=== PATIENT | male | born 1965 | race Caucasian/White ===

== ENCOUNTER 2021-12-29 05:19 | Day surgery (SDC) | payer OTHER, SELFPAY ==
[2021-12-26 06:47] VITALS: BMI 33.7
[2021-12-29 06:13] VITALS: BP 107/64; PULSE 62; RESP 16; TEMP 36.8; O2SAT 95
[2021-12-29] MEDS: sodium chloride 0.9% 1,000 ML 30 ML IV (06:18)
--- NOTE | 2021-12-29 06:53 | ANES.PREANE2 ---
Pre-Anesthetic Assessment Height/Weight: Height 1.91 m Weight 122.47 kg Temp Pulse Resp BP Pulse Ox 98.2 F 62 16 107/64 95 12/29/21 06:13 12/29/21 06:13 12/29/21 06:13 12/29/21 06:13 12/29/21 06:13 Preop Diagnosis: Screen Operation Date: 12/29/21 07:00 Proposed Procedures p Colonoscopy g0121/z12.11(Not Applicable) - Jose Samaniego MD Familial anesthetic complications: none Was Beta Anisha taken within 24 hours: N/A Was Clonidine taken within 24 hours: N/A Last intake: Intake Last Liquid Date 12/28/21 Last Liquid Time 22:30 Last Solid Date 12/27/21 Last Solid Time 18:00 Last Intake: 23:00 Social No alcohol and No tobacco Exam alert, oriented x 3, clear to auscultation bilaterally and regular rate & rhythm Airway Submandibular: within normal limits Cervical ROM: within normal limits Mallampati: Class II Dentition: full Pulmonary Sleep Apnea (cpap) CV/HEM Hypertension None reported Hepatic None reported GI None reported Metabolic None reported Musc/skel Lower Back Pain Neuropsych None reported Anesthetic Plan ASA status: 3 Anesthesia: MAC Risk of > 500 ml blood loss (7ml/kg in children): No Medications/Allergies Home Medications Medication Instructions Recorded Confirmed Last Taken Type aspirin 81 mg tablet,delayed 81 mg PO DAILY 10/31/19 12/29/21 12/28/21 History release (Adult Aspirin Regimen) lisinopril 20 mg tablet 20 mg PO DAILY 12/26/21 12/29/21 12/28/21 History Allergies Allergy/AdvReac Type Severity Reaction Status Date / Time No Known Allergies Allergy Verified 12/29/21 06:07 Current Medications Generic Name Dose Route Start Last Admin Trade Name Freq PRN Reason Stop Dose Admin Sodium Chloride 1,000 mls @ 30 mls/hr 12/29/21 06:15 12/29/21 06:18 Sodium Chloride 0.9% IV 30 mls/hr .Q24H TAMMY Administration PFSH Anesthesia Family History Other Cancer Social History Smoking and tobacco status: never smoked Alcohol intake: never Data Anesthesia Cardiac Studies: No Data to Display
--- NOTE | 2021-12-29 07:13 | P.HP_ITS ---
Same Day Surgery H&P Indication for Procedure/HPI DATE OF PROCEDURE: December 29, 2021 CHIEF COMPLAINT/INDICATIONFOR SURGICAL PROCEDURE: Screening PREOP DIAGNOSIS: Screen PLANNED PROCEDURE: Operation Date: 12/29/21 07:00 Proposed Procedures p Colonoscopy [id number]/z12.11(Not Applicable) - Jose Samaniego MD Medications/Allergies* Home Medications Medication Instructions Recorded Confirmed Type aspirin 81 mg tablet,delayed 81 mg PO DAILY 10/31/19 12/29/21 History release (Adult Aspirin Regimen) lisinopril 20 mg tablet 20 mg PO DAILY 12/26/21 12/29/21 History Allergies/Adverse Reactions Allergy/AdvReac Type Severity Reaction Status Date / Time No Known Allergies Allergy Verified 12/29/21 06:07 Current Medications: Generic Name Dose Route Start Last Admin Trade Name Freq PRN Reason Stop Dose Admin Sodium Chloride 1,000 mls @ 30 mls/hr 12/29/21 06:15 12/29/21 06:18 Sodium Chloride 0.9% IV 30 mls/hr .Q24H TAMMY Administration Pertinent History/Comorbid Conditions* Family History (Updated 10/31/19 @ 15:34 by Angeles Rick LPN) Cancer Social History Smoking and tobacco status: never smoked Alcohol intake: never Pertinent Exam Findings alert, oriented x 3, clear to auscultation bilaterally, regular rate & rhythm, operative site marked and procedure specific exam findings Recommendations Surgery/Procedure today Coding Level of Care Code 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
[2021-12-29 07:26] VITALS: BP 127/70; PULSE 73; RESP 18; TEMP 36.1; O2SAT 95
[2021-12-29 07:42] VITALS: BP 103/71; PULSE 55; RESP 18; O2SAT 93
--- NOTE | 2021-12-29 14:45 | ANE.PACU2 ---
Inpatient post-anesthesia follow up: Airway intact: Yes Vital signs: Temperature 97.0 F Pulse Rate 55 Respiratory Rate 18 Blood Pressure 103/71 Pulse Oximetry 93 Oxygen Delivery Me thod Room Air Oxygen Flow Rate 2 Fraction of Inspir ed Oxygen Hydration adequate: Yes Nausea and vomiting: No Pain level: 1 Mental status: Baseline
== END 2021-12-29 07:52 | disposition home or self-care (01) ==
PROVIDERS: PCP Internal Medicine; Visit Provider Internal Medicine
PROC: 0DJD8ZZ Inspection of Lower Intestinal Tract, Via Natural or Artificial Opening Endoscopic (ICD-10-PCS; CPT 45378; principal; 2021-12-29 07:00)
DX: Z12.11 Encounter for screening for malignant neoplasm of colon (principal); K57.30 Diverticulosis of large intestine without perforation or abscess without bleeding; Z79.82 Long term (current) use of aspirin; G47.30 Sleep apnea, unspecified; I10 Essential (primary) hypertension
CPT/HCPCS: 45378; J2704; J7030

== ENCOUNTER → 2024-01-28 13:11 | Outpatient (BNVA) | payer OTHER, SELFPAY | PROVIDERS: PCP Internal Medicine; Visit Provider Podiatrist Foot & Ankle Surgery | DX: M79.673 Pain in unspecified foot (principal); M79.672 Pain in left foot; M25.872 Other specified joint disorders, left ankle and foot | CPT/HCPCS: 73630 ==

== ENCOUNTER 2024-07-17 15:36 | Outpatient (CLI) | payer OTHER, SELFPAY | END 2024-07-17 15:37 | disposition home or self-care (01) | LOC: SPT 15:37 | PROVIDERS: PCP Internal Medicine; Visit Provider Podiatrist Foot & Ankle Surgery | DX: Z46.89 Encounter for fitting and adjustment of other specified devices (principal); M25.872 Other specified joint disorders, left ankle and foot; M79.672 Pain in left foot | CPT/HCPCS: L3030 ==

== ENCOUNTER → 2024-08-01 14:48 | Outpatient (BNVA) | payer OTHER, SELFPAY | PROVIDERS: PCP Internal Medicine; Visit Provider Student in an Organized Health Care Education/Training Program | DX: S83.282A Other tear of lateral meniscus, current injury, left knee, initial encounter; M17.12 Unilateral primary osteoarthritis, left knee; X58.XXXA Exposure to other specified factors, initial encounter | CPT/HCPCS: 73560; 73565 ==